=== PATIENT | male | born 1935 | race Caucasian/White ===

== ENCOUNTER → 2017-02-22 | Outpatient (CLI) | payer MEDICARE, BC ==
[~2017-02-22] MED LIST: /TAMS4CA PO; COUM6TAB PO; DIGO25TA PO; LEVO500I7 PO; LOSA100T36 PO; METF1000 PO; PERCOCET PO; PRAV40TA PO; TYLE325T5 PO
[2017-02-22 16:56] LABS: INR 3.24
== END ==
LOC: M WUC 11:58
PROVIDERS: ATTEND Family Medicine
DX: I48.2 Chronic atrial fibrillation (principal)

== ENCOUNTER → 2017-03-23 | Outpatient (CLI) | payer MEDICARE, BC ==
[2017-03-23 18:22] LABS: INR 3.46
== END ==
LOC: M WUC 11:56
PROVIDERS: ATTEND Family Medicine
DX: I48.2 Chronic atrial fibrillation (principal)

== ENCOUNTER → 2017-04-05 | Outpatient (CLI) | payer MEDICARE, BC ==
[2017-04-05 12:34] LABS: INR 3.42
== END ==
LOC: M WUC 11:38
PROVIDERS: ATTEND Family Medicine
DX: I48.2 Chronic atrial fibrillation (principal)

== ENCOUNTER → 2017-05-13 | Outpatient (CLI) | payer MEDICARE, BC ==
[2017-05-13 17:32] LABS: INR 2.58
== END ==
LOC: M WUC 12:28
PROVIDERS: ATTEND Family Medicine
DX: I48.2 Chronic atrial fibrillation (principal)

== ENCOUNTER → 2017-05-28 | Outpatient (CLI) | payer MEDICARE, BC ==
[2017-05-28 17:40] LABS: INR 2.58
== END ==
LOC: M WUC 10:33
PROVIDERS: ATTEND Family Medicine
DX: I48.2 Chronic atrial fibrillation (principal)

== ENCOUNTER → 2018-02-21 | Outpatient (CLI) | payer MEDICARE, BC ==
[2018-02-21 13:49] LABS: INR 2.98; PROTHROMBIN TIME 32.3 SECONDS (12.4-14.5)
== END ==
LOC: M WUC 10:59
DX: Z51.81 Encounter for therapeutic drug level monitoring (principal); Z79.01 Long term (current) use of anticoagulants
CPT/HCPCS: 85610

== ENCOUNTER → 2018-03-13 | Outpatient (CLI) | payer MEDICARE, BC ==
[2018-03-13 16:58] LABS: INR 3.03; PROTHROMBIN TIME 32.1 SECONDS (12.1-14.4)
== END ==
LOC: M WUC 14:04
DX: Z51.81 Encounter for therapeutic drug level monitoring (principal); Z79.01 Long term (current) use of anticoagulants
CPT/HCPCS: 85610

== ENCOUNTER → 2018-04-08 | Outpatient (CLI) | payer MEDICARE, BC ==
[2018-04-08 18:31] LABS: INR 2.59; PROTHROMBIN TIME 28.3 SECONDS (12.1-14.4)
== END ==
LOC: M WUC 17:02
DX: Z51.81 Encounter for therapeutic drug level monitoring (principal); Z79.01 Long term (current) use of anticoagulants
CPT/HCPCS: 85610

== ENCOUNTER → 2018-04-15 | Outpatient (CLI) | payer MEDICARE, BC ==
[2018-04-15 15:17] LABS: INR 2.51; PROTHROMBIN TIME 27.6 SECONDS (12.1-14.4)
== END ==
LOC: M WUC 10:47
DX: Z79.01 Long term (current) use of anticoagulants (principal)
CPT/HCPCS: 85610

== ENCOUNTER → 2018-04-22 | Outpatient (CLI) | payer MEDICARE, BC ==
[2018-04-22 12:24] LABS: INR 2.38; PROTHROMBIN TIME 26.5 SECONDS (12.1-14.4)
== END ==
LOC: M WUC 10:49
DX: I48.91 Unspecified atrial fibrillation (principal)
CPT/HCPCS: 85610

== ENCOUNTER → 2018-05-06 | Outpatient (CLI) | payer MEDICARE, BC ==
[2018-05-06 20:06] LABS: INR 3.08; PROTHROMBIN TIME 32.5 SECONDS (12.1-14.4)
== END ==
LOC: M WUC 15:44
DX: Z79.01 Long term (current) use of anticoagulants (principal)
CPT/HCPCS: 85610

== ENCOUNTER → 2018-06-03 | Outpatient (CLI) | payer MEDICARE, BC ==
[2018-06-03 18:36] LABS: INR 2.68; PROTHROMBIN TIME 29.1 SECONDS (12.1-14.4)
== END ==
LOC: M WUC 13:53
DX: I48.0 Paroxysmal atrial fibrillation (principal)
CPT/HCPCS: 85610

== ENCOUNTER → 2019-01-29 | Outpatient (CLI) | payer MEDICARE, BC ==
[~2019-01-29] MED LIST changes: -/TAMS4CA PO; +FLOM0.4C39 PO; +OXYC1TAB23 PO; -PERCOCET PO
[2019-01-29 17:31] LABS: INR 2.79
== END ==
LOC: M WUC 14:16
PROVIDERS: ATTEND Family Medicine
DX: I48.2 Chronic atrial fibrillation (principal)

== ENCOUNTER → 2019-02-26 | Outpatient (CLI) | payer MEDICARE, BC ==
[2019-02-26 16:56] LABS: INR 2.88; PROTHROMBIN TIME 30.1 SECONDS (11.8-14.0)
== END ==
LOC: M WUC 11:00
PROVIDERS: ATTEND Family Medicine
DX: I48.2 Chronic atrial fibrillation (principal)

== ENCOUNTER 2019-04-12 18:23 | Emergency (ER) | payer MEDICARE, BC ==
[~2019-04-12] VITALS: Ht 185.4 cm; Wt 75.0 kg
[2019-04-12] MEDS ORDERED: LASI20TA3 PO (18:36)
[2019-04-12] MEDS ORDERED: LANO125T4 PO (18:36)
[2019-04-12] MEDS ORDERED: COUM6TAB PO (18:36)
[2019-04-12] MEDS ORDERED: METF10004 PO (18:36)
[2019-04-12] MEDS ORDERED: AMLO25TA PO (18:36)
[2019-04-12] MEDS ORDERED: COUM1TAB17 PO (18:36)
[2019-04-12] MEDS ORDERED: PRAV40TA PO (18:36)
[2019-04-12] MEDS ORDERED: METF500T13 PO (18:36)
[2019-04-12] MEDS ORDERED: LOSA100T50 PO (18:36)
[2019-04-12 19:49] LABS: HEMATOCRIT 30.1 % (42.0-52.0); HEMOGLOBIN 10.2 g/dl (13.5-17.5); MEAN CORPUSCULAR HEMOGLOBIN 32.7 pg (27.0-33.0); MEAN CORPUSCULAR HGB CONC 33.9 g/dl (32.0-36.5); MEAN CORPUSCULAR VOLUME 96.5 fl (80.0-96.0); PLATELET COUNT, AUTOMATED 140 10^3/uL (150-450); RED BLOOD COUNT 3.12 10^6/uL (4.30-6.10); WHITE BLOOD COUNT 6.2 10^3/uL (4.0-10.0)
[2019-04-12 20:03] LABS: INR 2.65; PROTHROMBIN TIME 28.1 SECONDS (11.8-14.0)
[2019-04-12 20:26] LABS: CALCIUM LEVEL 9.4 MG/DL (8.8-10.2); CREATININE FOR GFR 2.39 MG/DL (0.70-1.30); GLOMERULAR FILTRATION RATE 27.7 (>35); POTASSIUM SERUM 4.8 MEQ/L (3.5-5.1)
[2019-04-12] MEDS ORDERED: [UNRECOGNIZED DRUG - CODE] EXT (21:58)
[2019-04-12] MEDS ORDERED: PROC2.5C TOP (21:58)
--- NOTE | 2019-04-12 21:58 | CR.PDOC ---
General Surgery Consultation Date of Consultation 04/12/19 History and Physical CONSULT REPORT FOR: Kermit Yun REASON FOR CONSULTATION: bleeding from thrombosed hemorrhoids on a patient on anticoagulation HISTORY OF PRESENT ILLNESS: Patient is an 84-year-old gentleman on Coumadin for mechanical heart valve who presents to the emergency department probably about 6 PM with complaints of onset of sharp anal pain accompanied by bleeding. Using his usual state of health, he felt constipated and had to strain more than usual to move his bowels. This is accompanied with sudden onset of pain and swelling of his hemorrhoids and the run accompanied by bleeding seemed to be profuse at the start with did not stop and thus he went to the emergency room. He is a resident of [place] and spends [place] here. PAST MEDICAL HISTORY: 1. Mechanical heart valve 2. Atrial fibrillation 3. Chronic kidney disease. stage III 4. Kidney stones 5. Diabetes PAST SURGICAL HISTORY: INCLUDES: 1. Mitral valve replacement (mechanical heart valve) PREVIOUS ANESTHESIA REACTIONS: Denies ALLERGIES: Please see below. HOME MEDICATIONS: Please see below. REVIEW OF SYSTEMS: Patient was in his usual state of health prior to the thrombosed hemorrhoids. He denies any ongoing chest pains. He is fairly active for his age. He denies any paroxysmal nocturnal dyspnea, dyspnea on exertion, anginal symptoms, leg swelling. He does have chronic kidney disease. He denies any abdominal pain, dysuria hematuria. No fevers chills or other infectious process recently. EXAMINATION: Patient seen looks fairly comfortable. He is pleasant and cooperative. He is examined on the left lateral decubitus position. There is evidence of recent bleed on his underwear with staining of his underwear with blood. After cleaning off the formed clots I could see evidence for a enlarged and thrombosed hemorrhoid at the left anterior quadrant protruding through the anal verge with the mucosa appearing purplish and thin. Tender to palpation. No active ongoing bleeding at the time that I saw him ANCILLARIES: . LABORATORY DATA: Please see below. IMAGING STUDIES: IMPRESSION AND PLAN: I counseled the patient that he is a thrombosed hemorrhoid and the swelling causes dilatation of the overlying skin and mucosa which causes of bleeding. He is on Coumadin. His last intake was last night. His current INR is 2.6. His CBC shows a hemoglobin of 10.2 and 30.1 which is at par with his previous labs. I suggested to keep the patient in the hospital and for him to undergo hemorrhoidectomy in the operating room. I would need to keep him in the hospital now for monitoring as the circumference and soft him needing to be anticoagulated for his mechanical heart valve maintenance we could not stop the Coumadin for prolonged periods of time and this didn't need to be monitored for rebleeding as the excised area most likely would not be closed. After speaking to him, his and the patient conversed and ultimately decided that since the bleeding is stopped at this point would like to go home and treat this conservatively for now. I suggested for them to perform warm sitz bath twice a day after bowel movements into take stool softeners in the hopes of getting a bulky soft stool and avoid straining. Given that he is on Coumadin anything he would most likely be bleed. Patient and is aware of this and would return to the emergency room if it so happens. Vital Signs Vital Signs Date Time Temp Pulse Resp B/P (MAP) Pulse Ox O2 Delivery O2 Flow Rate FiO2 04/12/19 20:59 53 18 167/72 (103) 99 04/12/19 18:24 99.0 Room Air Laboratory Data Labs 24H Laboratory Tests 2 04/12/19 19:40: Nucleated Red Blood Cells % (auto) 0.0, Prothrombin Time 28.1H, Prothromb Time International Ratio 2.65, Anion Gap 10, Glomerular Filtration Rate 27.7L, Blood Urea Nitrogen 53H, Creatinine 2.39H, Sodium Level 143, Potassium Level 4.8, Chloride Level 109H, Carbon Dioxide Level 24, Calcium Level 9.4 CBC/BMP Laboratory Tests 04/12/19 19:40 Red Blood Count 3.12 L, Mean Corpuscular Volume 96.5 H, Mean Corpuscular Hemoglobin 32.7, Mean Corpuscular Hemoglobin Concent 33.9, Red Cell Distribution Width 13.1, Calcium Level 9.4 Home Medications Scheduled Amlodipine Besylate (Amlodipine Besylate) 2.5 Mg Tablet, 2.5 MG PO DAILY, (Reported) Digoxin (Lanoxin) 125 Mcg Tablet, 0.25 MG PO DAILY, (Reported) Furosemide (Lasix) 20 Mg Tablet, 20 MG PO DAILY, (Reported) Losartan Potassium (Losartan Potassium) 100 Mg Tablet, 100 MG PO DAILY, (Reported) Metformin HCl (Metformin HCl) 500 Mg Tablet, 500 MG PO DAILY, (Reported) Metformin HCl (Metformin HCl) 1,000 Mg Tablet, 1 TAB PO DAILY, (Reported) Pravastatin Sodium (Pravachol) 40 Mg Tablet, 40 MG PO QPM, (Reported) Warfarin Sodium (Coumadin) 5 Mg Tablet, 1 TAB PO DAILY, (Reported) Warfarin Sodium (Coumadin) 6 Mg Tablet, 6 MG PO 1XWK, (Reported) Allergies Coded Allergies: Sulfa (Sulfonamide Antibiotics) (Verified Adverse Reaction, Mild, PHOTO SENSITIVITY, 04/12/19) FAY JONES MD Apr 12, 2019 21:58
[2019-04-12 22:03] VITALS: BP 181/74
== END 2019-04-12 22:20 | disposition left against medical advice (07) ==
LOC: M ED 18:23
DX: K64.8 Other hemorrhoids (principal); E11.9 Type 2 diabetes mellitus without complications; I51.9 Heart disease, unspecified; N18.9 Chronic kidney disease, unspecified; Z87.891 Personal history of nicotine dependence; Z79.84 Long term (current) use of oral hypoglycemic drugs; Z79.01 Long term (current) use of anticoagulants; Z79.899 Other long term (current) drug therapy; Z88.2 Allergy status to sulfonamides

== ENCOUNTER → 2019-05-13 | Outpatient (CLI) | payer MEDICARE, BC ==
[~2019-05-13] MED LIST changes: +AMLO25TA PO; +COUM1TAB17 PO; +LANO125T4 PO; +LASI20TA3 PO; +LOSA100T50 PO; +METF10004 PO; +METF500T13 PO; +PROC2.5C TOP; +[UNRECOGNIZED DRUG - CODE] EXT
[2019-05-13 14:58] LABS: INR 2.35; PROTHROMBIN TIME 25.5 SECONDS (11.8-14.0)
== END ==
LOC: M WUC 12:09
PROVIDERS: ATTEND Family Medicine
DX: I48.2 Chronic atrial fibrillation (principal); Z79.01 Long term (current) use of anticoagulants

== ENCOUNTER → 2019-05-29 | Outpatient (CLI) | payer MEDICARE, BC ==
[2019-05-29 19:19] LABS: INR 3.38; PROTHROMBIN TIME 34.2 SECONDS (11.8-14.0)
== END ==
LOC: M WUC 12:11
PROVIDERS: ATTEND Family Medicine
DX: I48.2 Chronic atrial fibrillation (principal)

== ENCOUNTER → 2020-02-15 | Outpatient (CLI) | payer MEDICARE, BC ==
[~2020-02-15] MED LIST changes: +COUM6TAB10 PO
[2020-02-15 17:32] LABS: INR 3.03; PROTHROMBIN TIME 31.3 SECONDS (11.8-14.0)
== END ==
LOC: M WUC 11:32
PROVIDERS: ATTEND Family Medicine
DX: I48.20 Chronic atrial fibrillation, unspecified (principal)

== ENCOUNTER → 2020-03-10 | Outpatient (CLI) | payer MEDICARE, BC ==
[2020-03-10 17:21] LABS: INR 2.46; PROTHROMBIN TIME 26.5 SECONDS (11.8-14.0)
== END ==
LOC: M WUC 12:13
PROVIDERS: ATTEND Family Medicine
DX: I48.20 Chronic atrial fibrillation, unspecified (principal)

== ENCOUNTER → 2020-04-11 | Outpatient (REF) | payer MEDICARE, BC ==
[2020-05-12 13:32] LABS: INR 3.23; PROTHROMBIN TIME 33.8 SECONDS (11.8-14.0)
== END ==
LOC: M WUC 09:21
PROVIDERS: ATTEND Family Medicine
DX: I48.20 Chronic atrial fibrillation, unspecified (principal); Z79.01 Long term (current) use of anticoagulants

== ENCOUNTER → 2020-05-03 | Outpatient (CLI) | payer MEDICARE, BC ==
[2020-05-03 16:20] LABS: INR 2.9
== END ==
LOC: M WUC 13:50
PROVIDERS: ATTEND Family Medicine
DX: I48.20 Chronic atrial fibrillation, unspecified (principal)

== ENCOUNTER → 2020-05-26 | Outpatient (CLI) | payer MEDICARE, BC ==
[2020-05-26 16:42] LABS: INR 2.54; PROTHROMBIN TIME 27.9 SECONDS (12.5-14.3)
== END ==
LOC: M WUC 13:59
PROVIDERS: ATTEND Family Medicine
DX: I48.20 Chronic atrial fibrillation, unspecified (principal)

== ENCOUNTER → 2022-03-11 | Outpatient (REF) | payer MEDICARE, BC ==
[~2022-03-11] MED LIST changes: +LOSA100T45 PO; -LOSA100T50 PO
== END ==
LOC: M WUC 17:21
PROVIDERS: ATTEND Physician Assistant
DX: L03.011 Cellulitis of right finger (principal)

== ENCOUNTER → 2022-03-13 | Outpatient (CLI) | payer MEDICARE, BC | LOC: M WUC 11:54 | PROVIDERS: ATTEND Physician Assistant | DX: M79.644 Pain in right finger(s) (principal); L03.011 Cellulitis of right finger ==